=== PATIENT | female | born 1940 | race Caucasian/White ===

== ENCOUNTER 2023-09-19 02:18 | Emergency (ER) | payer SELFPAY ==
[~2023-09-19] VITALS: Ht 160 cm; Wt 140.0 kg
[2023-09-19 02:54] LABS: Basophils # (auto) 0 10 ^3/uL (0-0.2); Basophils % (auto) 0.5 % (0.0-2.0); Eosinophils # (auto) 0.2 10 ^3/uL (0-0.8); Eosinophils % (auto) 2.6 % (0.0-7.0); Hematocrit 35.5 % (36.0-46.0); Hemoglobin 11.7 g/dL (12.2-16.2); Lymphocytes # (auto) 1.5 10 ^3/uL (0.4-5.4); Lymphocytes % (auto) 19.3 % (10.0-50.0); Mean Corpuscular Hemoglobin 30.1 pg (28.0-32.0); Mean Corpuscular Volume 91.3 fL (80.0-100.0); Monocytes # (auto) 0.7 10 ^3/uL (0-1.3); Monocytes % (auto) 8.7 % (0.0-12.0); Neutrophils # (auto) 5.2 10 ^3/uL (1.6-8.6); Neutrophils % (auto) 68.9 % (37.0-80.0); Red Blood Cells 3.89 10^6/uL (4.0-5.20); Red Cell Distribution Width 14.9 % (11.8-14.3); White Blood Cell 7.6 10^3/uL (4.4-10.8)
[2023-09-19 03:03] VITALS: PULSE 70; RESP 18; TEMP 98.1; O2SAT 97
[2023-09-19 05:38] LABS: Alanine Aminotransferase 18 U/L (7-40); Albumin 3.9 g/dL (3.2-4.8); Alkaline Phosphatase 59 U/L (46-116); Anion Gap 2 (5-15); Aspartate Aminotransferase 14 U/L (13-40); BUN/Creatinine Ratio 24.6 (10.0-20.0); Bilirubin, Total 0.3 mg/dL (0.2-1.0); Blood Urea Nitrogen 17 mg/dL (9-23); Calcium 9.1 mg/dL (8.7-10.4); Carbon Dioxide 29 mmol/L (20-30); Chloride 106 mmol/L (98-107); Glucose 87 mg/dL (74-106); Sodium 137 mmol/L (136-145); Total Protein 6.8 g/dL (5.7-8.2)
[2023-09-19 06:00] VITALS: BP 97/58; RESP 18; O2SAT 94
[2023-09-19 06:05] LABS: Rapid Influenza A Negative (Negative); Rapid Influenza B Negative (Negative)
[2023-09-19 06:06] LABS: COVID19 ANTIGEN SOFIA FIA NEGATIVE (NEGATIVE)
[2023-09-19 06:07] LABS: INR 1.01 (0.9-1.15); Partial Thromboplastin Time 31.9 SEC (24.5-34.5); Prothrombin Time 10.6 sec (9.3-11.8)
[2023-09-19 06:32] VITALS: PULSE 79
[2023-09-19] MEDS: FUROSEMIDE 100 MG/10ML VIAL IV ONE (06:54)
== END 2023-09-19 07:34 | disposition left against medical advice (07) ==
LOC: ER 02:18
DX: I50.9 Heart failure, unspecified (principal); Z59.00 Homelessness unspecified; Z20.822 Contact with and (suspected) exposure to COVID-19
CPT/HCPCS: 36415; 71045; 80053; 83880; 84484; 85025; 85610; 85730; 87426; 87804; 93005